=== PATIENT | female | born 1970 | race Caucasian/White ===

== ENCOUNTER 2018-06-25 08:30 | Day surgery (SDC) | payer OTHER ==
[~2018-06-25] VITALS: Ht 167.6 cm; Wt 77.0 kg
[~2018-06-25 08:30] MED LIST: FAMO20 PO; SUMA25TA9 PO; VITAD1000 PO
[2018-06-25] MEDS ORDERED: METOPROLOL TARTRATE 50 MG TABLET PO PRN (09:00)
[2018-06-25] MEDS ORDERED: 0.9% SODIUM CHLORIDE 10 ML SYRINGE IVP PRN (09:00)
[2018-06-25 09:43] LABS: ANION GAP 4 mmol/L (8-16); CARBON DIOXIDE 31 mmol/L (22-29); CHLORIDE 106 mmol/L (98-107); CREATININE 0.63 mg/dL (0.60-1.30); GLOMERULAR FILTR. RATE CALC > 60 mL/min (>60); GLUCOSE,RANDOM 106 mg/dL (70-110); POTASSIUM 3.9 mmol/L (3.5-5.1); SODIUM SERUM 141 mmol/L (136-145); UREA NITROGEN, BLOOD 11 mg/dL (7-18)
[2018-06-25] MEDS ORDERED: METOPROLOL TARTRATE 5 MG/5 ML VIAL ONE ×2 (10:10→11:57)
[2018-06-25 10:32] LABS: HCG,QUANTITATIVE 3 mIU/mL (0-6)
[2018-06-25] MEDS ORDERED: SODIUM CHLORIDE 0.9% 100 ML ONE (10:43)
[2018-06-25] MEDS ORDERED: IOVERSOL 350 MG/ML 150 ML VIAL ONE (10:43)
[2018-06-25] MEDS ORDERED: METOPROLOL TARTRATE 50 MG TABLET ONE (11:19)
[2018-06-25] MEDS ORDERED: NITROGLYCERIN 400 MCG/SUBLINGUAL SPRAY 4.9 GM BOTTLE SL ONE ×2 (11:57→12:30)
[2018-06-25] MEDS ORDERED: METOPROLOL TARTRATE 5 MG/5 ML VIAL IVP ONE ×3 (12:00→12:26)
== END 2018-06-25 13:25 | disposition home or self-care (01) ==
LOC: SURGERY 08:30 → EDSTATUS 11:00 → SURGERY 13:25
PROVIDERS: ATTEND Internal Medicine Cardiovascular Disease
DX: I08.3 Combined rheumatic disorders of mitral, aortic and tricuspid valves (principal); R07.9 Chest pain, unspecified; G43.909 Migraine, unspecified, not intractable, without status migrainosus
CPT/HCPCS: 36415; 75574; 80048; 84702; 93005; J3490; J7050; Q9967